=== PATIENT | female | born 1965 | race Two or more races ===

== ENCOUNTER 2021-01-29 16:59 | Emergency (ER) | payer OTHER ==
[~2021-01-29] VITALS: Ht 157.5 cm; Wt 81.2 kg
[2021-01-29 17:02] VITALS: BP 133/76
--- NOTE | 2021-01-29 17:10 | NUR ---
Pt ambulated to bed 11 with steady gait
--- NOTE | 2021-01-29 17:14 | NUR ---
55 y/o female c/o right flank pain x 7 days. Pt denies trauma/injury. Denies urinary symptoms. States 8/10 sharp pain that radiates to right left flank. States she has been taking ibuprofen with no relief, last taken at 1000 today. Pt awake and alert. Skin warm, dry, intact. Guarding flank. medhx: denies
--- NOTE | 2021-01-29 17:24 | NUR ---
PA Armendariz at bedside evaluating patient
[2021-01-29] MEDS ORDERED: KETOROLAC 30 MG/ML VIAL IM ONE (17:30)
[2021-01-29] MEDS ORDERED: LID5T TP (18:30)
[2021-01-29] MEDS ORDERED: IBUP-2213 PO (18:30)
[2021-01-29] MEDS ORDERED: CYCL-711 PO (18:30)
[2021-01-29] MEDS ORDERED: METH4TAB3 PO (18:30)
--- NOTE | 2021-01-29 18:35 | NUR ---
Patient discharged with v/s stable. Written and verbal after care instructions given and explained. Patient alert, oriented and verbalized understanding of instructions. Ambulatory with steady gait. All questions addressed prior to discharge. ID band removed. Patient advised to follow up with PMD. Rx of CYCLOBENZAPRINE, IBUPROFEN, METHYLPREDNISOLONE, LIDOCAINE HYD given.Opportunity to ask questions provided and answered.
[2021-01-29 18:36] VITALS: BP 133/76
--- NOTE | 2021-01-29 18:41 | NUR ---
The patient's care was reviewed and supervised by Jolynn Lindsay RN.
== END 2021-01-29 18:35 | disposition home or self-care (01) ==
LOC: MED 16:59
DX: S39.012A Strain of muscle, fascia and tendon of lower back, initial encounter (principal); R03.0 Elevated blood-pressure reading, without diagnosis of hypertension; Z79.899 Other long term (current) drug therapy; W19.XXXA Unspecified fall, initial encounter; Y93.89 Activity, other specified; Y92.89 Other specified places as the place of occurrence of the external cause; Y99.8 Other external cause status
CPT/HCPCS: 81002; 96372; 99283; J1885